=== PATIENT | female | born 1950 | race African-American/Black ===

== ENCOUNTER 2019-04-24 01:02 | Emergency (ER) | payer MEDICARE, BC ==
[~2019-04-24] VITALS: Ht 172.7 cm; Wt 117.9 kg
[~2019-04-24 01:02] MED LIST: AMLODIPINE BESYL5 MG ORAL; LOSARTAN-HCTZ1 EACH ORAL
--- NOTE | 2019-04-24 01:17 | NUR ---
ED Nurse Note: pt presents to ED with a bump on her L ankle. pt denies any injury to the area but does note that she has been flying a lot lately.pt denies any pain or difficulty walking. upon exam, the skin is intact and there is no obvious deformity, it is palpable and not hard or warm.
[2019-04-24 01:19] VITALS: BP 151/89
--- NOTE | 2019-04-24 01:26 | NUR ---
ER DISCHARGE NOTE: Patient is cleared to be discharged per ERMD, pt is aox4, on room air, with stable vital signs. pt was given dc instructions, pt was able to verbalize understanding, pt id band and iv site removed without complications. pt is able to ambulate with steady gait. pt took all belongings.
--- NOTE | 2019-04-24 03:16 | Emergency Room Report ---
History of Present Illness General Chief Complaint: Skin Rash/Abscess Source: Patient Present Illness HPI 69-year-old female presents ED for evaluation. States there is a "bump" on her left ankle. States that she noticed it tonight. Denies any pain. Denies any fall or injury. states it made her very nervous so she came to ED for evaluation. States there is no pain with walking. No calf pain or calf swelling. No other aggravating relieving factors. Denies any other associated symptoms Allergies: Coded Allergies: No Known Allergies (Unverified , 05/07/13) Patient History Past Medical History: none Past Surgical History: none Pertinent Family History: none Social History: Denies: smoking, alcohol use, drug use Last Menstrual Period: na Now: No Immunizations: UTD Reviewed Nursing Documentation: PMH: Agreed; PSxH: Agreed Nursing Documentation-PMH Hx Hypertension: Yes Hx Neurological Problems: No Review of Systems All Other Systems: negative except mentioned in HPI Physical Exam Vital Signs Date Time Temp Pulse Resp B/P (MAP) Pulse Ox O2 Delivery O2 Flow Rate FiO2 04/24/19 01:07 98.2 88 16 151/89 (109) 94 Sp02 EP Interpretation: reviewed, normal General Appearance: no apparent distress, alert, GCS 15, non-toxic Head: normocephalic, atraumatic Eyes: bilateral eye normal inspection, bilateral eye PERRL ENT: normal ENT inspection Neck: normal inspection Respiratory: normal inspection Cardiovascular #1: normal inspection Gastrointestinal: normal inspection Rectal: deferred Genitourinary: no CVA tenderness Musculoskeletal: back normal, gait/station normal, normal range of motion, non- tender Neurologic: alert, oriented x3, responsive, motor strength/tone normal, sensory intact, speech normal Psychiatric: normal inspection Skin: other - 1cm nodular swelling noted distal to Lateral malleolus L ankle. pliable. movable. no fluctuance or discharge. no erythema/induration Lymphatic: normal inspection Medical Decision Making Diagnostic Impression: Primary Impression: Lipoma Qualified Codes: D17.24 - Benign lipomatous neoplasm of skin and subcutaneous tissue of left leg ER Course Hospital Course 69 yo F presents with swelling to L ankle Differential diagnoses include: Cellulitis, dermatitis, insect bite, abscess Clinical course Patient placed on stretcher. After initial history, physical exam reveals an elderly female in no acute distress. On exam there is a nodular swelling to the left ankle. Just distal to the lateral malleolus. Appears rubbery in nature. Movable. No fluctuance or discharge. Nontender. No erythema or induration. Discussed findings with patient. Likely a lipoma. Has likely been there for some time, however patient only noticed it today. Is not causing any restriction in joint mobility. Will discharge to home. Will require nonemergent outpatient surgical evaluation for possible removal. I will provide referrals Diagnosis - lipoma stable and discharged to home. Instructed to followup with PMD/surgery. Instructed return to ED if symptoms recur or worsen Last Vital Signs Date Time Temp Pulse Resp B/P (MAP) Pulse Ox O2 Delivery O2 Flow Rate FiO2 04/24/19 01:25 98.2 16 151/89 94 04/24/19 01:07 88 Status: improved Disposition: HOME, SELF-CARE Condition: Stable Referrals: Jose E Brown Assa MD (PCP) Patient Instructions: Ganglion Cyst García Jean MD Apr 24, 2019 03:16
== END 2019-04-24 01:30 | disposition home or self-care (01) ==
LOC: EMR 01:27
DX: D17.24 Benign lipomatous neoplasm of skin and subcutaneous tissue of left leg (principal); I10 Essential (primary) hypertension
CPT/HCPCS: 99282

== ENCOUNTER 2019-05-05 13:54 | Emergency (ER) | payer MEDICARE, BC ==
[~2019-05-05] VITALS: Ht 172.7 cm; Wt 108.9 kg
[2019-05-05] MEDS ORDERED: Isovue-370 150ml vial INJ PRN (14:15)
--- NOTE | 2019-05-05 14:20 | NUR ---
ED Nurse Note: pt walked in c/o richard ankle swelling, pt reports she had chest pain on and off for couple of days as well but denies pain at this time, pt reports she noticed her swelling after she came back from [facility]. 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 pt denies pain at this time but advised to notify staff if pt has pain or need assist. pt verbalized understanding. warm blanket provided for comfort. safety precautions in place, lab specimen sent to lab.
[2019-05-05 14:28] VITALS: BP 140/80
[2019-05-05 14:35] LABS: EOSINOPHILS % (AUTO) 1.3 % (0.0-3.0); HEMATOCRIT 43.9 % (37.0-47.0); HEMOGLOBIN 14.7 G/DL (12.0-16.0); LYMPHOCYTES % (AUTO) 31.2 % (20.0-45.0); MEAN CORPUSCULAR VOLUME 93 FL (80-99); NEUTROPHILS % (AUTO) 60.6 % (45.0-75.0); PLATELET COUNT 380 K/UL (150-450); RED CELL DISTRIBUTION WIDTH 12.7 % (11.6-14.8); WHITE BLOOD COUNT 11.1 K/UL (4.8-10.8)
[2019-05-05 14:55] LABS: ANION GAP 8 mmol/L (5-15); BLOOD UREA NITROGEN 18 mg/dL (7-18); CALCIUM 8.6 MG/DL (8.5-10.1); CARBON DIOXIDE 29 MMOL/L (21-32); CHLORIDE 107 MMOL/L (98-107); POTASSIUM 3.8 MMOL/L (3.5-5.1); SODIUM 144 MMOL/L (136-145)
[2019-05-05 15:05] LABS: ALANINE AMINOTRANSFERASE 22 U/L (12-78); ALBUMIN 3.7 G/DL (3.4-5.0); ALKALINE PHOSPHATASE 97 U/L (46-116); ASPARTATE AMINO TRANSFERASE 20 U/L (15-37); BILIRUBIN,TOTAL 0.3 MG/DL (0.2-1.0)
--- NOTE | 2019-05-05 15:27 | Emergency Room Report ---
History of Present Illness General Chief Complaint: Chest Pain Source: Patient Present Illness HPI 69-year-old female presents ED for evaluation. Patient complaining of chest pain and leg swelling. States that one week ago she flew to the [facility] and states that one day after the flight she noticed some leg swelling. Denies any pain. States that about 3 days ago she started having some chest pain. Notes intermittent tightness in her chest. Denies any chest pain at this time. Denies any shortness of breath. States that she flew back today. No other aggravating relieving factors. Denies any other associated symptoms Allergies: Coded Allergies: No Known Allergies (Unverified , 05/07/13) Patient History Past Medical History: HTN Past Surgical History: none Pertinent Family History: none Social History: Denies: smoking, alcohol use, drug use Now: No Immunizations: UTD Reviewed Nursing Documentation: PMH: Agreed; PSxH: Agreed Nursing Documentation-PMH Past Medical History: No History, Except For Hx Hypertension: Yes Hx Neurological Problems: No Review of Systems All Other Systems: negative except mentioned in HPI Physical Exam Vital Signs Date Time Temp Pulse Resp B/P (MAP) Pulse Ox O2 Delivery O2 Flow Rate FiO2 05/05/19 14:02 98.4 85 17 164/95 (118) 99 Room Air Sp02 EP Interpretation: reviewed, normal General Appearance: no apparent distress, alert, GCS 15, non-toxic Head: normocephalic, atraumatic Eyes: bilateral eye normal inspection, bilateral eye PERRL ENT: hearing grossly normal, normal pharynx, no angioedema, normal voice Neck: full range of motion, supple/symm/no masses Respiratory: chest non-tender, lungs clear, normal breath sounds, speaking full sentences Cardiovascular #1: regular rate, rhythm, no edema Cardiovascular #2: 2+ carotid (R), 2+ carotid (L), 2+ radial (R), 2+ radial (L) , 2+ dorsalis pedis (R), 2+ dorsalis pedis (L) Gastrointestinal: normal bowel sounds, non tender, soft, non-distended, no guarding, no rebound Rectal: deferred Genitourinary: normal inspection, no CVA tenderness Musculoskeletal: back normal, gait/station normal, normal range of motion, non- tender, swelling - 1+ swelling lower extremities bilaterally Neurologic: alert, oriented x3, responsive, motor strength/tone normal, sensory intact, speech normal Psychiatric: judgement/insight normal, memory normal, mood/affect normal, no suicidal/homicidal ideation Reflexes: 3+ bicep (R), 3+ bicep (L), 3+ tricep (R), 3+ tricep (L), 3+ knee (R) , 3+ knee (L) Skin: no rash Lymphatic: no adenopathy Medical Decision Making Diagnostic Impression: Primary Impression: Chest pain Qualified Codes: R07.9 - Chest pain, unspecified ER Course Hospital Course 69-year-old F presents ED complaining of chest pain, leg swelling Differential diagnoses include: Rib fracture, VA/unstable angina, contusion, muscle strain Clinical course Patient placed on stretcher. After initial history and physical I ordered labs , EKG, chest x-ray. labs reviewed- all electrolytes normal, troponins negative, no leukocytosis, hemoglobin/hematocrit stable EKG - NSR, no acute ischemc changes interpreted by me Chest x-ray-no cardiomegaly, no rib fracture, no pneumothorax, no acute process CTA Chest ordered because of recent flight, leg swelling and chest pain. r/o PE CTA Chest - no evidence of PE I discussed findings with patient. Given stable vitals. Negative work-up including negative CTA chest I believe patient can be discharged home with close outpatient follow-up. States she has a PMD I. I feel this is a highly complex case requiring extensive working including EKG/Rhythm strip, Xray/CT/US, Blood/urine lab work, repeat exams while in ED, and administration of strong opiates/narcotics for pain control, admission to hospital or close patient follow up. Diagnosis - chest pain Stable and discharged to home. Instructed to followup with PMD. Return to ED if symptoms recur or worsen Labs Test 05/05/19 14:17 White Blood Count 11.1 K/UL (4.8-10.8) Red Blood Count 4.70 M/UL (4.20-5.40) Hemoglobin 14.7 G/DL (12.0-16.0) Hematocrit 43.9 % (37.0-47.0) Mean Corpuscular Volume 93 FL (80-99) Mean Corpuscular Hemoglobin 31.3 PG (27.0-31.0) Mean Corpuscular Hemoglobin Concent 33.5 G/DL (32.0-36.0) Red Cell Distribution Width 12.7 % (11.6-14.8) Platelet Count 380 K/UL (150-450) Mean Platelet Volume 5.7 FL (6.5-10.1) Neutrophils (%) (Auto) 60.6 % (45.0-75.0) Lymphocytes (%) (Auto) 31.2 % (20.0-45.0) Monocytes (%) (Auto) 6.0 % (1.0-10.0) Eosinophils (%) (Auto) 1.3 % (0.0-3.0) Basophils (%) (Auto) 1.0 % (0.0-2.0) Sodium Level 144 MMOL/L (136-145) Potassium Level 3.8 MMOL/L (3.5-5.1) Chloride Level 107 MMOL/L (98-107) Carbon Dioxide Level 29 MMOL/L (21-32) Anion Gap 8 mmol/L (5-15) Blood Urea Nitrogen 18 mg/dL (7-18) Creatinine 1.0 MG/DL (0.55-1.30) Estimat Glomerular Filtration Rate > 60 mL/min (>60) Glucose Level 105 MG/DL (74-106) Calcium Level 8.6 MG/DL (8.5-10.1) Total Bilirubin 0.3 MG/DL (0.2-1.0) Aspartate Amino Transf (AST/SGOT) 20 U/L (15-37) Alanine Aminotransferase (ALT/SGPT) 22 U/L (12-78) Alkaline Phosphatase 97 U/L (46-116) Troponin I 0.000 ng/mL (0.000-0.056) Pro-B-Type Natriuretic Peptide 33 pg/mL (0-125) Total Protein 7.3 G/DL (6.4-8.2) Albumin 3.7 G/DL (3.4-5.0) Globulin 3.6 g/dL Albumin/Globulin Ratio 1.0 (1.0-2.7) EKG Diagnostic Results Rate: normal Rhythm: NSR ST Segments: no acute changes ASA given to the pt in ED: No Rhythm Strip Diag. Results EP Interpretation: yes Rhythm: NSR, no PVC's, no ectopy Chest X-Ray Diagnostic Results Chest X-Ray Diagnostic Results : Chest X-Ray Ordered: Yes # of Views/Limited/Complete: 1 View Indication: Chest Pain EP Interpretation: Yes Interpretation: no consolidation, no effusion, no pneumothorax, no acute cardiopulmonary disease Impression: No acute disease Electronically Signed by: Electronically signed by García Jean MD CT/MRI/US Diagnostic Results CT/MRI/US Diagnostic Results : Imaging Test Ordered: CTA Chest Impression Pulmonary arteries: No pulmonary embolus. Prominent bilateral main pulmonary arteries, likely pulmonary arterial hypertension. Aorta: No acute findings. No thoracic aortic aneurysm. Lungs: Right upper lobe partial lobectomy collapse of the residual lobe. Emphysema. Linear atelectasis left lower lobe. No mass. Pleural space: Unremarkable. No significant effusion. No pneumothorax. Heart: Cardiomegaly. No significant pericardial effusion. No evidence of RV dysfunction. Bones/joints: Degenerative changes of the spine. No acute fracture. No dislocation. Soft tissues: Unremarkable. Lymph nodes: Unremarkable. No enlarged lymph nodes. Last Vital Signs Date Time Temp Pulse Resp B/P (MAP) Pulse Ox O2 Delivery O2 Flow Rate FiO2 05/05/19 14:28 98.4 86 16 140/80 99 Room Air Status: improved Disposition: HOME, SELF-CARE Condition: Stable Referrals: NON PHYSICIAN (PCP) García Jean MD May 05, 2019 15:27
--- NOTE | 2019-05-05 15:34 | Diagnostic Imaging Report ---
EXAM: XR Chest, 1 View CLINICAL HISTORY: CP TECHNIQUE: Frontal view of the chest. COMPARISON: No relevant prior studies available. FINDINGS: Lungs: Small nodularities in the right lower lung may be old granulomatous disease. Lungs otherwise clear. Pleural space: Unremarkable. No pneumothorax. Heart: Unremarkable. No cardiomegaly. Mediastinum: Unremarkable. Bones joints: Unremarkable. Lymph nodes: Prominence of the right hilum, likely vasculature versus lymph nodes. IMPRESSION: 1. Prominence of the right hilum, likely vasculature versus lymph nodes. 2. Small nodularities in the right lower lung may be old granulomatous disease. Lungs otherwise clear.
--- NOTE | 2019-05-05 15:37 | NUR ---
ED Nurse Note: pt off to CT.
--- NOTE | 2019-05-05 16:00 | NUR ---
ED Nurse Note: pt came back from CT, vss, resp even and unlabored on RA, iv intact and patent, will cont monitor.
--- NOTE | 2019-05-05 17:17 | Diagnostic Imaging Report ---
EXAM: CT Angiography Chest With Intravenous Contrast CLINICAL HISTORY: CP TECHNIQUE: Axial computed tomographic angiography images of the chest with intravenous contrast. CTDI is 159 mGy and DLP is 929.6 mGy-cm. One or more of the following dose reduction techniques were used: automated exposure control, adjustment of the mA and or kV according to patient size, use of iterative reconstruction technique. MIP reconstructed images were created and reviewed. Coronal and sagittal reformatted images were created and reviewed. COMPARISON: Chest x-ray today FINDINGS: Pulmonary arteries: No pulmonary embolus. Prominent bilateral main pulmonary arteries, likely pulmonary arterial hypertension. Aorta: No acute findings. No thoracic aortic aneurysm. Lungs: Right upper lobe partial lobectomy collapse of the residual lobe. Emphysema. Linear atelectasis left lower lobe. No mass. Pleural space: Unremarkable. No significant effusion. No pneumothorax. Heart: Cardiomegaly. No significant pericardial effusion. No evidence of RV dysfunction. Bones joints: Degenerative changes of the spine. No acute fracture. No dislocation. Soft tissues: Unremarkable. Lymph nodes: Unremarkable. No enlarged lymph nodes. IMPRESSION: 1. No pulmonary embolus. 2. Prominent bilateral main pulmonary arteries, likely pulmonary arterial hypertension. 3. Right upper lobe partial lobectomy, collapse of the residual lobe. 4. Emphysema.
[2019-05-05 17:55] VITALS: BP 123/65
--- NOTE | 2019-05-05 17:55 | NUR ---
ED Nurse Note: pt cleared to be d/c per ermd, pt discharge and aftercare instruction provided, pt advised to follow up with pcp or return to ed if changes in condition, education done via discussion and handout, pt verbalized understanding and agrees with plan, vss, ambulatory w/ steady gait, iv d/c and id band removed, pt left w/ all belongings.
--- NOTE | 2019-05-06 16:18 | Cardiology Report ---
APPROVED REPORT EKG Measurement Heart [id number] ME [id number] Normal sinus rhythm Possible Anterior infarct, age undetermined Abnormal ECG
== END 2019-05-05 17:55 | disposition home or self-care (01) ==
LOC: EMR 14:15
DX: R07.9 Chest pain, unspecified (principal); I10 Essential (primary) hypertension
CPT/HCPCS: 36415; 71045; 71275; 80053; 83880; 84484; 85025; 93005; 99284; Q9967

== ENCOUNTER 2019-05-30 17:25 | Emergency (ER) | payer MEDICARE, BC ==
[~2019-05-30] VITALS: Ht 172.7 cm; Wt 108.9 kg
[2019-05-30 17:55] VITALS: BP 156/92
--- NOTE | 2019-05-30 18:35 | Emergency Room Report ---
History of Present Illness General Chief Complaint: Pain Source: Patient Present Illness HPI 69 YO Female presents to the ED c/o 04/05 in severity progressive localized pain , swelling, and erythema of dorsum of the left hand x 2 days. Pt. reports pain exacerbated upon movement , flexion/extension of the left hand. Pt. is right hand dominant. Pt. reports last night took a 5mg [place] without relief. Pt. denies appreciable trauma or fall. Denies notable open wound/insect bites. Pt. denies fevers or chills. Pt. reports warmth to the dorsum of the hand. Pt. reports swelling in the left wrist and hand but no tenderness in the wrist joint. Pt. denies paresthesias, or loss of gross motor movements of the affected extremity. Denies hx of gout. Only Pmhx is HTN. No other aggravating or relieving factors. Pt. is right hand dominant. Allergies: Coded Allergies: No Known Allergies (Unverified , 05/07/13) Patient History Past Medical History: see triage record, HTN Pertinent Family History: none Now: No Immunizations: UTD Reviewed Nursing Documentation: PMH: Agreed; PSxH: Agreed Nursing Documentation-PMH Hx Hypertension: Yes Hx COPD: No - lung cancer 2010 Hx Neurological Problems: No Review of Systems All Other Systems: negative except mentioned in HPI Physical Exam Vital Signs Date Time Temp Pulse Resp B/P (MAP) Pulse Ox O2 Delivery O2 Flow Rate FiO2 05/30/19 17:39 98.1 85 17 156/92 (113) 96 Room Air Sp02 EP Interpretation: reviewed, normal General Appearance: no apparent distress, alert, GCS 15, non-toxic Head: normocephalic, atraumatic Eyes: bilateral eye normal inspection, bilateral eye PERRL ENT: hearing grossly normal, normal voice Neck: full range of motion Respiratory: chest non-tender, lungs clear, normal breath sounds, speaking full sentences Cardiovascular #1: regular rate, rhythm, no edema, normal capillary refill Cardiovascular #2: 2+ radial (R), 2+ radial (L) Musculoskeletal: normal range of motion, gait/station normal, non-tender, tender - Dorsum of the left hand. Swelling, erythema and warmth noted. Not circumferential. No bruises or obvious deformities., swelling - left hand and wrist ( dorsum) Neurologic: alert, motor strength/tone normal, oriented x3, sensory intact, responsive, speech normal, grossly normal Psychiatric: judgement/insight normal Skin: other - Swelling, erythema and warmth noted to the dorsum of the left hand. Not circumferential. No bruises or obvious deformities. Medical Decision Making PA Attestation Dr. Jean is my supervising Physician whom patient management has been discussed with. Diagnostic Impression: Primary Impression: Cellulitis Qualified Codes: L03.114 - Cellulitis of left upper limb Additional Impression: Hand pain, left ER Course 69 YO Female presents to the ED c/o 04/05 in severity progressive localized pain , swelling, and erythema of dorsum of the left hand x 2 days. Pt. reports pain exacerbated upon movement , flexion/extension of the left hand. Pt. is right hand dominant. Pt. reports last night took a 5mg [place] without relief. Pt. denies appreciable trauma or fall. Denies notable open wound/insect bites. Pt. denies fevers or chills. Pt. reports warmth to the dorsum of the hand. Pt. reports swelling in the left wrist and hand but no tenderness in the wrist joint. Pt. denies paresthesias, or loss of gross motor movements of the affected extremity. Denies hx of gout. Only Pmhx is HTN. No other aggravating or relieving factors. Pt. is right hand dominant. Ddx considered but are not limited to cellulitis, Septic joint, fracture, d/L, gout/pseudogout Vital signs: are WNL, pt. is afebrile H&PE are most consistent with ST Cellulitis of the dorsum of the left hand. ORDERS: -X-ray left hand 3 views: WNL ED INTERVENTIONS: -Clindamycin PO -Motrin PO -Left Colles wrist/hand Splint applied by information technology assistant. Pt. remains neurovascularly intact. -I do not identify an emergent condition at this time. With current presentation , pt. is stable for close outpatient follow up and conservative treatment. D/ w pt. to return promptly to ED with worsening or new symptoms.- Pt. verbalizes' understanding and agreement with proposed treatment plan. DISCHARGE: At this time pt. is stable for d/c to home. Will provide printed patient care instructions, and any necessary prescriptions. Care plan and follow up instructions have been discussed with the patient prior to discharge. Other X-Ray Diagnostic Results Other X-Ray Diagnostic Results : X-Ray ordered: Left Hand # of Views/Limited Vs Complete: 3 View Indication: Pain EP Interpretation: Yes PA Xray: Interpretation reviewed, by supervising MD, and agrees with findings. Interpretation: no dislocation, no soft tissue swelling, no fractures, nonspecific bowel gas Impression: No acute disease Electronically Signed by: Cherrie Batres PA-C Last Vital Signs Date Time Temp Pulse Resp B/P (MAP) Pulse Ox O2 Delivery O2 Flow Rate FiO2 05/30/19 17:55 98.1 85 16 156/92 96 Room Air Disposition: HOME, SELF-CARE Condition: Stable Scripts Diclofenac Sodium (VOLTAREN) 100 Gm Gel..gram. 1 APPLIC TP Q6HR, #100 GM Prov: Cherrie Batres 05/30/19 Hydrocodone Bit/Acetaminophen 10-325* (NORCO 10-325*) 1 Each Tablet 1 TAB ORAL Q8HR PRN for For Pain, #12 TAB 0 Refills PRN PAIN Prov: Cherrie Batres 05/30/19 Clindamycin Hcl (CLINDAMYCIN HCL) 300 Mg Capsule 300 MG ORAL FOUR TIMES A DAY for 7 Days, #28 CAP Prov: Cherrie Batres 05/30/19 Referrals: NOT CHOSEN IPA/MD,REFERRING (PCP) Patient Instructions: Cellulitis, [id number] Additional Instructions: Take medications as directed. Follow up with a Primary Care Provider in 3-5 days, even if your symptoms have resolved. --Please review list of primary care clinics, if you do not already have a primary care provider Return sooner to ED if new symptoms occur, or current symptoms become worse. Do not drink alcohol, drive, or operate heavy machinery while taking [place] as this may cause drowsiness. - Please note that this Emergency Department Report was dictated using emazesubstance abuse prevention coordinator technology software, occasionally this can lead to erroneous entry secondary to interpretation by the dictation equipment. Cherrie Batres May 30, 2019 18:35
[2019-05-30] MEDS ORDERED: Bactrim-DS 1 tab ORAL ONE (18:45)
[2019-05-30] MEDS ORDERED: Cephalexin 500mg cap ORAL ONE (18:45)
[2019-05-30] MEDS ORDERED: VOLTAREN100 G1 TP (18:49)
[2019-05-30] MEDS ORDERED: NORCO 10-325 T1 EACH ORAL (18:49)
[2019-05-30] MEDS ORDERED: CLINDAMYCIN HC300 MG ORAL (18:49)
[2019-05-30] MEDS ORDERED: Clindamycin 150mg cap ORAL ONE (19:00)
[2019-05-30 19:04] VITALS: BP 148/88
--- NOTE | 2019-05-31 13:17 | Diagnostic Imaging Report ---
Indication: Left hand pain Technique: 3 views left hand Comparison: none Findings: No acute fractures. No dislocations. Small corticated ossific density projects posterior to the proximal carpal row on the lateral view, may reflect old injury. There is mild degenerative change of the first carpometacarpal joint. Impression: No acute process. Findings as noted
== END 2019-05-30 19:06 | disposition home or self-care (01) ==
LOC: EMR 17:55
DX: L03.114 Cellulitis of left upper limb (principal); M25.542 Pain in joints of left hand; I10 Essential (primary) hypertension; Z85.118 Personal history of other malignant neoplasm of bronchus and lung
CPT/HCPCS: 29125; 99283

== ENCOUNTER 2019-07-15 14:57 | Emergency (ER) | payer MEDICARE, BC ==
[~2019-07-15] VITALS: Ht 172.7 cm; Wt 117.9 kg
[~2019-07-15 14:57] MED LIST changes: +CLINDAMYCIN HC300 MG ORAL; +NORCO 10-325 T1 EACH ORAL; +VOLTAREN100 G1 TP
[2019-07-15 15:19] VITALS: BP 140/85
[2019-07-15] MEDS ORDERED: Ketorolac 30mg Inj IV ONE (15:30)
[2019-07-15] MEDS ORDERED: Omnipaque-300 100ml vial INJ PRN (15:30)
--- NOTE | 2019-07-15 15:31 | Emergency Room Report ---
History of Present Illness General Chief Complaint: Abdominal Pain Source: Patient, Medical Record Present Illness HPI Disclaimer: Please note that this report is being documented using DRAGON technology. This can lead to erroneous entry secondary to incorrect interpretation by the dictating instrument. HPI: 69-year-old female history of diverticulitis and hypertension presents for evaluation of abdominal pain. The patient has had cramping and persistent left lower quadrant pain for approximately 1 week. Some rates it at a 7/10 currently. Is somewhat exacerbated by eating and relieved by rest. She has not taken any NSAIDs or other pain medications for it. She denies nausea, vomiting, dyspepsia, diarrhea. She has been taking some stool softeners as she has had very small stools lately. Denies dysuria, hematuria, flank pain or history of kidney stones. Denies fever, chills, chest pain or shortness of breath or other changes in her health. Has not had a diverticulitis flare in several years. PMH: Hypertension, diverticulitis PSH: None reported Allergies: None reported Social Hx: Occasional alcohol use, none recently. Denies tobacco or drug use Allergies: Coded Allergies: No Known Allergies (Unverified , 05/07/13) Nursing Documentation-PMH Hx Hypertension: Yes Hx COPD: No - lung cancer 2011 Hx Neurological Problems: No Review of Systems All Other Systems: negative except mentioned in HPI Physical Exam Vital Signs Date Time Temp Pulse Resp B/P (MAP) Pulse Ox O2 Delivery O2 Flow Rate FiO2 07/15/19 15:10 97.5 85 16 140/85 (103) 96 Room Air General: Awake and alert, no acute distress HEENT: NC/AT. EOMI. Cardiovascular: RRR. S1 and S2 normal. No murmur appreciated Resp: Normal work of breathing. No cough, wheezing or crackles appreciated Abdomen: Abdomen is obese. Nondistended. No masses appreciable. There is tenderness to palpation in the left lower quadrant. No rebound tenderness, negative Coronado's tenderness. No tenderness in the upper quadrants or in the right lower quadrant or periumbilical region. Skin: Intact. No abrasions, laceration or rash over the exposed skin MSK: Normal tone and bulk. Moving all extremities. No obvious deformity. Neuro: Awake and alert. Mentating appropriately. Medical Decision Making Diagnostic Impression: Primary Impression: Diverticulitis ER Course 69-year-old female with history of diverticulitis presents for evaluation of 1 week abdominal pain. Differential includes was not limited to diverticulosis, diverticulitis, bowel obstruction, constipation, gastritis, gastroenteritis, pancreatitis, nephrolithiasis, UTI, pyelonephritis, ovarian pathology. Of these , diverticulitis would be most consistent with her symptoms and history. Will send screening labs and send for CT scan of the abdomen and pelvis with contrast. Fluids and Toradol ordered. Laboratory Tests Test 07/15/19 15:28 07/15/19 15:40 Urine Color Pale yellow Urine Appearance Clear Urine pH 6 (4.5-8.0) Urine Specific [place] 1.020 (1.005-1.035) Urine Protein Negative (NEGATIVE) Urine Glucose (UA) Negative (NEGATIVE) Urine Ketones Negative (NEGATIVE) Urine Blood 1+ (NEGATIVE) H Urine Nitrite Negative (NEGATIVE) Urine Bilirubin Negative (NEGATIVE) Urine Urobilinogen Normal MG/DL (0.0-1.0) Urine Leukocyte Esterase Negative (NEGATIVE) Urine RBC 5-10 /HPF (0 - 2) H Urine WBC 0-2 /HPF (0 - 2) Urine Squamous Epithelial Cells Moderate /LPF (NONE/OCC) H Urine Bacteria Few /HPF (NONE) White Blood Count 13.3 K/UL (4.8-10.8) H Red Blood Count 4.37 M/UL (4.20-5.40) Hemoglobin 14.0 G/DL (12.0-16.0) Hematocrit 40.6 % (37.0-47.0) Mean Corpuscular Volume 93 FL (80-99) Mean Corpuscular Hemoglobin 32.0 PG (27.0-31.0) H Mean Corpuscular Hemoglobin Concent 34.4 G/DL (32.0-36.0) Red Cell Distribution Width 12.1 % (11.6-14.8) Platelet Count 379 K/UL (150-450) Mean Platelet Volume 5.5 FL (6.5-10.1) L Neutrophils (%) (Auto) 67.5 % (45.0-75.0) Lymphocytes (%) (Auto) 25.1 % (20.0-45.0) Monocytes (%) (Auto) 5.5 % (1.0-10.0) Eosinophils (%) (Auto) 1.1 % (0.0-3.0) Basophils (%) (Auto) 0.8 % (0.0-2.0) Sodium Level 145 MMOL/L (136-145) Potassium Level 3.9 MMOL/L (3.5-5.1) Chloride Level 106 MMOL/L (98-107) Carbon Dioxide Level 25 MMOL/L (21-32) Anion Gap 14 mmol/L (5-15) Blood Urea Nitrogen 17 mg/dL (7-18) Creatinine 1.2 MG/DL (0.55-1.30) Estimate Glomerular Filtration Rate 53.9 mL/min (>60) Glucose Level 101 MG/DL (74-106) Calcium Level 8.9 MG/DL (8.5-10.1) Total Bilirubin 0.2 MG/DL (0.2-1.0) Aspartate Amino Transferase (AST) 13 U/L (15-37) L Alanine Aminotransferase (ALT) 22 U/L (12-78) Alkaline Phosphatase 99 U/L (46-116) Total Protein 7.5 G/DL (6.4-8.2) Albumin 3.2 G/DL (3.4-5.0) L Globulin 4.3 g/dL Albumin/Globulin Ratio 0.7 (1.0-2.7) L Lipase 174 U/L (73-393) CT/MRI/US Diagnostic Results CT/MRI/US Diagnostic Results : Impression Preliminary Findings Only See Final Report For Complete Findings CT ABDOMEN & PELVIS With Contrast: INDICATION: Generalized normal TECHNIQUE: Multiple, contiguous axial cuts of the abdomen and pelvis are obtained from the lung bases to the ischial tuberosities following the administration of IV contrast. Sagittal and coronal reformatted images are available. COMPARISON: No relevant imaging studies available. FINDINGS: Visible lower thorax: No acute findings. Liver: Hypoattenuating subcentimeter structure is identified in the right inferior hepatic lobe, too small to characterize. No other focal liver lesion. Biliary tree: Gallbladder is unremarkable. No biliary dilatation. Spleen: Normal volume. Pancreas: No focal lesion pain. No duct dilatation. Adrenal glands: Unremarkable. Kidneys: Symmetric renal enhancement. No hydronephrosis. Vasculature: Abdominal aorta is normal in diameter. Lymph nodes: No lymphadenopathy. GI track: Colonic diverticulosis. There is pericolonic fat stranding at the mid/ distal sigmoid colon. No free air. No abscess. Normal appendix. No bowel obstruction. Urinary bladder: Partially distended. Reproductive organs: Unremarkable as visualized. Bones: No acute skeletal findings of multilevel spine degenerative. IMPRESSION: Colonic diverticulosis with pericolonic sigmoid colon fat stranding. These findings are suggestive of acute diverticulitis. No free air. No abscess. Additional findings as above. Radiologist: Cristian Phillip MD Study ready at 17:01 and initial results transmitted at 17:11 Reevaluation Time: 17:17 Last Vital Signs Date Time Temp Pulse Resp B/P (MAP) Pulse Ox O2 Delivery O2 Flow Rate FiO2 07/15/19 15:19 85 16 Room Air 07/15/19 15: 97.5 140/85 96 Reevaluation Impression Labs largely within normal limits aside from slight elevation in white count with neutrophil predominance. No evidence of urinary tract infection. CT scan of the abdomen concerning for acute diverticulitis of the colon but no evidence of perforation or other pathology noted. Patient be treated with Augmentin for 10 days and follow-up with her PMD and gastroenterology. Discussed reasons to return to the emergency department. She understands agrees with this treatment plan. Disposition: HOME, SELF-CARE Condition: Stable Scripts Amoxicillin/Potassium Clav 875-125* (AUGMENTIN 875-125 TABLET*) 1 Each Tablet 1 TAB ORAL TWICE A DAY for 10 Days, #20 TAB Prov: Noman Escamilla MD 07/15/19 Noman Escamilla MD Jul 15, 2019 15:31
[2019-07-15] MEDS ORDERED: ASPIR 8181 MG ORAL (15:36)
[2019-07-15] MEDS ORDERED: AMLODIPINE BESY10 MG ORAL (15:36)
[2019-07-15 15:56] LABS: BASOPHILS % (AUTO) 0.8 % (0.0-2.0); EOSINOPHILS % (AUTO) 1.1 % (0.0-3.0); HEMATOCRIT 40.6 % (37.0-47.0); LYMPHOCYTES % (AUTO) 25.1 % (20.0-45.0); MEAN CORPUSCULAR VOLUME 93 FL (80-99); MONOCYTES % (AUTO) 5.5 % (1.0-10.0); NEUTROPHILS % (AUTO) 67.5 % (45.0-75.0); PLATELET COUNT 379 K/UL (150-450); RED BLOOD COUNT 4.37 M/UL (4.20-5.40); RED CELL DISTRIBUTION WIDTH 12.1 % (11.6-14.8); WHITE BLOOD COUNT 13.3 K/UL (4.8-10.8)
[2019-07-15 16:01] LABS: APPEARANCE,URINE CLEAR; BILIRUBIN, URINE NEGATIVE (NEGATIVE); COLOR,URINE PALE YELLOW; GLUCOSE, URINE (UA) NEGATIVE (NEGATIVE); KETONES,URINE NEGATIVE (NEGATIVE); LEUKOCYTE ESTERASE ,URINE NEGATIVE (NEGATIVE); NITRITE,URINE NEGATIVE (NEGATIVE); PH,URINE 6 (4.5-8.0); PROTEIN,URINE NEGATIVE (NEGATIVE); UROBILINOGEN,URINE NORMAL MG/DL (0.0-1.0)
[2019-07-15 16:31] LABS: ANION GAP 14 mmol/L (5-15); BLOOD UREA NITROGEN 17 mg/dL (7-18); CALCIUM 8.9 MG/DL (8.5-10.1); CARBON DIOXIDE 25 MMOL/L (21-32); CHLORIDE 106 MMOL/L (98-107); CREATININE 1.2 MG/DL (0.55-1.30); POTASSIUM 3.9 MMOL/L (3.5-5.1); SODIUM 145 MMOL/L (136-145)
[2019-07-15 16:35] LABS: ALANINE AMINOTRANSFERASE 22 U/L (12-78); ALBUMIN 3.2 G/DL (3.4-5.0); ALBUMIN/GLOBULIN RATIO 0.7 (1.0-2.7); ALKALINE PHOSPHATASE 99 U/L (46-116); ASPARTATE AMINO TRANSFERASE 13 U/L (15-37); BILIRUBIN,TOTAL 0.2 MG/DL (0.2-1.0)
--- NOTE | 2019-07-15 17:12 | Diagnostic Imaging Report ---
INDICATION: Abdominal pain TECHNIQUE: Continuous helical transaxial imaging of the abdomen and pelvis was obtained from the lung bases to the pubic symphysis during intravenous contrast administration. Coronal 2-D reformats were also obtained. Study obtained in a Siemens sensation [address] Automatic Exposure Control was utilized. Total Dose length Product (DLP): 2251.[address] Dose Index Volume (CTDIvol): 39 mGy COMPARISON: None FINDINGS: Lungs: The visualized lung bases are clear. Liver: A single faint hypodensity noted in the inferior right lobe nonspecific in nature. Gallbladder/biliary system: No gallstones are identified. There is no evidence of intrahepatic or extrahepatic biliary ductal dilatation. Spleen: Unremarkable Pancreas: Unremarkable Kidneys: No hydronephrosis identified. Both kidneys enhance symmetrically.. Adrenal glands: Unremarkable Aorta/IVC: There is a mild mural calcification involving the aortoiliac vessels. Bowel: There is pericolonic soft tissue stranding in the area of the sigmoid colon and descending colon with extensive diverticulosis. Findings consistent with acute diverticulitis. There is no abscess identified. There is no evidence of bowel obstruction. The appendix is normal. Bladder: Unremarkable Peritoneum: There is no free fluid. Atrophic uterus noted with tiny calcification along the fundal surface may be indicative of a small fibroid. Small left inguinal hernia containing fat noted.. Bones: There is narrowing of intervertebral discs and accompanying endplate osteophyte formation. Hypertrophied facet joints also demonstrated. IMPRESSION: Acute sigmoid diverticulitis. No abscess identified. Less than 1 cm faint hypodensity in the inferior right lobe of the liver nonspecific in nature. Consider correlation with ultrasound. Uterine calcification. Suspect underlying fibroid. The CT scanner at [facility] is accredited by the [employer] and the scans are performed using dose optimization techniques as appropriate to a performed exam including Automatic Exposure control.
[2019-07-15] MEDS ORDERED: AUGMENTIN 875-1 EAC1 ORAL ×2 (17:20)
[2019-07-15] MEDS ORDERED: Augmentin 875mg Tab ORAL ONE (17:30)
[2019-07-15 17:45] VITALS: BP 140/85
--- NOTE | 2019-07-15 17:45 | NUR ---
ED Nurse Note: Patient cleared for DC by Dr. Escamilla. Patient AxO x 4, no s/s of acute distress. IV and nameband removed. Patient walks with steady gait and has all belonging.s
== END 2019-07-15 17:45 | disposition home or self-care (01) ==
LOC: EMR 15:13
DX: K57.92 Diverticulitis of intestine, part unspecified, without perforation or abscess without bleeding (principal); I10 Essential (primary) hypertension; Z85.118 Personal history of other malignant neoplasm of bronchus and lung; E66.9 Obesity, unspecified; Z68.39 Body mass index [BMI] 39.0-39.9, adult
CPT/HCPCS: 36415; 74177; 80053; 81003; 83690; 85025; 96361; 96374; 99284; J1885; J7030; Q9967

== ENCOUNTER 2020-08-20 06:30 | Emergency (ER) | payer MEDICARE, BC ==
[~2020-08-20] VITALS: Ht 172.7 cm; Wt 108.9 kg
[~2020-08-20 06:30] MED LIST changes: +AMLODIPINE BESY10 MG ORAL; +ASPIR 8181 MG ORAL; +AUGMENTIN 875-1 EAC1 ORAL
--- NOTE | 2020-08-20 06:55 | NUR ---
ED Nurse Note: Recieved pt walk in from home with c/o left calf pain at 01/03 since yesterday, pain was less yesterday and worse this am, pt concerned of clot, pt is ambulatory and has more pain when ambulates, mild swelling noted, all pulses present, pt denies chest pain, no sob or labored breathing noted, pt assisted to bed, refuses to gown at this time, wants to se md first, started IV line and labs drawn, pt waiting to be seen by md, will resume care as ordered and closely monitor.
--- NOTE | 2020-08-20 07:14 | Emergency Room Report ---
History of Present Illness General Chief Complaint: Pain Source: Patient Present Illness HPI Patient presents to the emergency department today complaining of left calf pain since yesterday. Patient states that she has no change in activity but has tenderness in her left calf. He is uncertain if is actually swollen. She denies any chest pain or shortness of breath. Patient states that she is concerned there might be a clot there. Patient has never had a DVT before. Patient denies any nausea vomiting diarrhea chills. Patient denies any travel. Denies any hormonal supplements. Patient had history of cancer about 10 years ago that was treated surgically. No other complaints since then. No history of trauma. Symptoms are mild. No history erythema or injury to the legs. No oth er modifying factors. No other associated signs and symptoms. No other complaints were noted. 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 COVID-19 Screening: Negative COVID-19 COVID-19 Testing Source: forum Patient History Past Medical History: HTN Past Surgical History: none Pertinent Family History: none Social History: Denies: smoking, alcohol use, drug use Last Menstrual Period: n/a Reviewed Nursing Documentation: PMH: Agreed; PSxH: Agreed Nursing Documentation-PMH Past Medical History: No History, Except For Hx Hypertension: Yes Hx COPD: No - lung cancer 2010 Hx Neurological Problems: No Review of Systems All Other Systems: negative except mentioned in HPI Physical Exam Vital Signs Date Time Temp Pulse Resp B/P (MAP) Pulse Ox O2 Delivery O2 Flow Rate FiO2 08/20/20 06:34 98.1 79 18 153/82 (105) 96 Room Air Sp02 EP Interpretation: reviewed, normal General Appearance: normal inspection, well appearing, no apparent distress, al ert Head: atraumatic Eyes: bilateral eye normal inspection ENT: normal ENT inspection, hearing grossly normal, normal voice Neck: normal inspection, full range of motion, supple, no bony tend Respiratory: normal inspection, lungs clear, normal breath sounds, no respiratory distress, no retraction, no wheezing Cardiovascular #1: regular rate, rhythm, no edema Gastrointestinal: normal inspection, normal bowel sounds, non tender, soft, no guarding, no hernia Genitourinary: no CVA tenderness Musculoskeletal: normal inspection, back normal, normal range of motion Neurologic: alert, responsive, speech normal, normal inspection Psychiatric: normal inspection, judgement/insight normal, mood/affect normal Skin: no rash Medical Decision Making Diagnostic Impression: Primary Impression: Pain ER Course Patient presents emergency department today complaining of left lower extremity pain. Differential considerations include fracture dislocation strain DVT just to name a few. Patient's exam is nonconcerning. Given patient's history of cancer and calf tenderness without trauma will rule out for DVT. Ultrasound of the left lower extremity was negative for DVT. Therefore I feel the patient can be discharged. Patient is advised to follow up with primary doctor in 2-3 days and return the emergency room for any worsening symptoms and as needed. CT/MRI/US Diagnostic Results CT/MRI/US Diagnostic Results : Imaging Test Ordered: Left lower extremity venous Doppler: Negative for DVT Last Vital Signs Date Time Temp Pulse Resp B/P (MAP) Pulse Ox O2 Delivery O2 Flow Rate FiO2 08/20/20 06:34 98.1 79 18 153/82 (105) 96 Room Air Status: improved Disposition: HOME, SELF-CARE Condition: Stable Ap Noble MD Aug 20, 2020 07:14
[2020-08-20] MEDS ORDERED: HYDROCODON-ACE1 EA15 ORAL (08:22)
[2020-08-20 08:35] VITALS: BP 145/67
--- NOTE | 2020-08-20 08:35 | NUR ---
ER DISCHARGE NOTE: Patient is cleared to be discharged per ERMD, pt is aox4, on room air, with stable vital signs. pt was given dc and prescription instructions, pt was able to verbalize understanding, pt id band and iv site removed without complications. pt is able to ambulate with steady gait. pt took all belongings.
--- NOTE | 2020-08-20 09:40 | Diagnostic Imaging Report ---
Indication: Reason For Exam: PAIN Technique: Venous Duplex Lower Ext Uni Comparison: None. Findings: The left common femoral, femoral and popliteal veins are normal in caliber and normally compressible. Normal respiratory variation and normal augmentation is noted. There is normal compressibility of the demonstrated left calf veins but all of the veins are not visualized.. The right common femoral vein is normal in caliber and normally compressible. Impression: No evidence of thrombosis in the left femoral or popliteal veins. No evidence of thrombosis in the visualized calf veins though veins are not seen. Normal right common femoral vein.
== END 2020-08-20 08:37 | disposition home or self-care (01) ==
LOC: EMR 07:35
DX: M79.662 Pain in left lower leg (principal); I10 Essential (primary) hypertension; Z85.118 Personal history of other malignant neoplasm of bronchus and lung
CPT/HCPCS: 93971; 99284